=== PATIENT | female | born 1940 | race Caucasian/White ===

== ENCOUNTER 2018-06-09 10:21 | Outpatient (CLI) | payer MEDICARE ==
[2018-06-09 11:09] LABS: Blood Urea Nitrogen 12 mg/dL (7-17)
--- NOTE | 2018-06-09 14:11 | Cat Scan Report ---
FINAL REPORT EXAM: CT ANGIO ABD/FEMORAL ABD AORTA HISTORY: CHRONIC VENOUS HYPERTENSION WITH ULCER TECHNIQUE: CTA of the abdomen, pelvis and lower extremities through the toes was performed after the administration of intravenous contrast. Rotating MIPS were included. Reconstructions were included in the coronal and sagittal planes. PRIORS: None. FINDINGS: Lower thorax: There is an incompletely imaged left lower lobe nodular opacity on series 2, image 1 me asuring 5 millimeters. The visualized portions of the heart are normal. Liver: The liver is normal in attenuation. No intrahepatic biliary duct dilation. No focal hepatic le sions. Gallbladder/ biliary system: Post cholecystectomy. Mild dilation of the common bile duct is likely re lated to the postcholecystectomy state. Spleen: No splenic lesions are seen. Pancreas: No pancreatic lesions are seen. No pancreatic duct dilation. Kidneys: No renal masses, cysts or hydronephrosis. Adrenal glands: No adrenal masses. Vasculature: Calcified atherosclerotic plaque is seen throughout the abdominal aorta, branch vessels and lower extremity arteries. There is approximately 50 percent stenosis of the left distal superfici al femoral artery. Normal trifurcations are seen. There is lack of opacification of the mid to distal aspect of the right anterior tibial artery. There is reconstitution of flow distally. There is poor opacification of the left posterior tibial artery. No aneurysm is seen. The celiac axis, SMA, PATRICIA and renal arteries are patent. The common, internal and external iliac arteries are patent. Lymph nodes: No enlarged lymph nodes are seen in the abdomen or pelvis. Bowel, mesentery, peritoneum: No bowel obstruction. No free fluid or free air. The appendix was not s een. Colonic diverticulosis is seen. No diverticulitis. No bowel wall thickening. Urinary bladder: No filling defects are seen. Pelvis: Normal anatomy is noted. No masses. Abdominal wall: Small bilateral fat containing inguinal hernias are seen. Bones: Bilateral L5 pars interarticularis defects are seen. There is grade 1 anterolisthesis of L5 on S1. Multilevel degenerative changes of the lumbar spine are seen. Lower extremities: No soft tissue abnormality. Bilateral knee joint effusions are seen. Moderate to s evere osteoarthritis of the knees is noted. Estimates of vessel stenosis were made by measuring the diameter of the normal caliber vessel to the diameter of the area of stenosis. IMPRESSION: 1. Approximately 50 percent stenosis of the left distal superficial femoral artery. 2. Possible chronic occlusion of the distal aspect of the right anterior tibial artery. 3. Poor opacification of the left posterior tibial artery may represent slow flow versus chronic occl usion. 4. Small bilateral fat containing inguinal hernias. 5. Bilateral knee joint effusions with moderate to severe osteoarthritis of the knees. 6. Left lower lobe nodule. This nodule is incompletely imaged. Recommend further evaluation with ches t CT to assess for other nodules. 7. Colonic diverticulosis without diverticulitis.
== END 2018-06-09 10:22 | disposition home or self-care (01) ==
LOC: CT 10:21
PROVIDERS: ATTEND Radiology Diagnostic Radiology
DX: K40.20 Bilateral inguinal hernia, without obstruction or gangrene, not specified as recurrent (principal); K57.30 Diverticulosis of large intestine without perforation or abscess without bleeding; M17.0 Bilateral primary osteoarthritis of knee; I70.233 Atherosclerosis of native arteries of right leg with ulceration of ankle; I87.311 Chronic venous hypertension (idiopathic) with ulcer of right lower extremity; I87.2 Venous insufficiency (chronic) (peripheral); M25.462 Effusion, left knee; M25.461 Effusion, right knee; I10 Essential (primary) hypertension; E78.00 Pure hypercholesterolemia, unspecified
CPT/HCPCS: 36415; 75635; 82565; 82570; 84520; Q9967

== ENCOUNTER 2018-08-06 07:58 | Day surgery (SDC) | payer MEDICARE ==
[~2018-08-06 07:58] MED LIST: ANCEF/STERILE WATER 2 GM/20 ML 2 GM/20 ML SYRINGE IV NR; NACL 0.9% 1000 ML 1,000 ML IV SCH
[2018-08-06 09:46] LABS: Basophils % (Auto) 0.8 % (0.0-1.8); Eosinophils # (Auto) 0.1 K/mm3 (0.0-0.4); Eosinophils % (Auto) 1.4 % (0.0-4.3); Hematocrit 36.3 % (30.3-42.9); Hemoglobin 12.1 gm/dl (10.1-14.3); Lymphocytes % (Auto) 21.1 % (13.4-35.0); Mean Corpuscular HGB Conc 34 % (30-34); Mean Corpuscular Volume 93 fl (79-97); Monocytes # (Auto) 0.6 K/mm3 (0.0-0.8); Monocytes % (Auto) 12.4 % (0.0-7.3); Platelet Count 146 K/mm3 (140-440); Red Blood Count 3.89 M/mm3 (3.65-5.03); Red Cell Distribution Width 14.7 % (13.2-15.2)
[2018-08-06 10:01] LABS: INR 1.08 (0.87-1.13)
[2018-08-06 10:02] LABS: BUN/Creatinine Ratio 29; Blood Urea Nitrogen 23 mg/dL (7-17); Calcium 8.6 mg/dL (8.4-10.2); Hemolysis Index 4; Partial Thromboplastin Time 26.3 Sec. (24.2-36.6)
[2018-08-06] MEDS ORDERED: HEPARIN/NS 5000 UNIT/500ML(CATH LAB) 1,000 ML IR ONE (11:26)
[2018-08-06] MEDS ORDERED: HEPARIN 10,000 UNITS/10 ML ONE (11:26)
[2018-08-06] MEDS ORDERED: ANCEF/STERILE WATER 2 GM/20 ML 2 GM/20 ML SYRINGE IV ONE (11:42)
[2018-08-06] MEDS: SUBLIMAZE ONE ×4 (12:00→13:23)
[2018-08-06] MEDS: VERSED ONE ×6 (12:00→13:28)
[2018-08-06] MEDS: XYLOCAINE 2% INFILTRATI ONE ×2 (12:09→12:13)
[2018-08-06] MEDS ORDERED: SUBLIMAZE ONE (13:22)
--- NOTE | 2018-08-06 13:48 | Operative Report ---
Operative Report Operative Report: Operative note: Date: 08/06/2018 Preoperative diagnosis:. 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 Operation: Bilateral ultrasound-guided venous access femoral vein proximally. Bilateral venogram. Intravascular ultrasound of distal IVC, bilateral common and external iliac, common femoral veins. Bilateral common and external iliac stenting with 16 x 90 and proximal extension on the left with 18 x 90 Wallstent Surgeon: Lucia Cancino. Asst.: none Anesthesia: Local with moderate sedation EBL: Minimal Findings: Bilateral external iliac and left common iliac stenosis Indications: 8-0year-old female has been developing venous stasis ulceration. She previously underwent great saphenous vein ablation. Patient has severe dementia and cannot tolerate compression stockings. Operative details: Patient was brought to the [facility] and placed in supine position. Bilateral femoral area and upper thigh medially were prepped and draped in sterile fashion. Timeout was performed. Right femoral vein proximally was accessed under ultrasound guidance with micropuncture needle and exchanged the micropuncture sheath. That was upsized to 5 [place] access sheath. Next, left access was then performed. in the proximal femoral vein micropuncture needle and that was upsized to micropuncture sheath and then 5 [place] access sheath. Venogram was performed bilaterally noting any of the contrast on the right common iliac side. Bilateral wire access was done with Recinos on the left side and J-wire on the right side. 5 [place] sheath was upsized to 8French sheaths. intravascular ultrasound.IVUS was done noting a lot of scarring and stenosis of the right side external iliac and same stenosis of the left side. At this point stenosis points were marked on the screen as well as venous confluence. Patient was heparinized with 3000 units of heparin. Bilateral Wallstents were deployed size 16x 90. Then balloon angioplasty was 16 mm Vidal balloon was performed inside stents. On the left side the stent slide down. We extended the extent and opposed to right-sided stent into IVC, however it wasn't advancing. Using a vertebral catheter exchanged Recinos wire to glide advantage. Then I balloon angioplasty to create space and deployed successfully 18 x 90 stent expansion in the kissing fashion with the contralateral stent. Both stents were postdilated with 16 x 40 Vidal balloon. IVUS was done bilaterally noting good stent upposition. Wires were removed and sheath were pulled, manual pressure held. Pressure dressing were applied. Patient tolerated procedure well.
--- NOTE | 2018-08-06 13:55 | Short Stay Summary ---
Short Stay Documentation Date of service: 08/06/18 - History H&P: obtained from office - Allergies and Medications Current Medications: Allergies No Known Allergies Allergy (Unverified 12/28/15 22:14) Home Medications Medication Instructions Recorded Confirmed Last Taken Type Alendronate Sodium [Fosamax] 70 mg PO QWEEK 01/06/18 08/06/18 08/04/18 History 70mg Atenolol [Tenormin] 50 mg PO BID 01/06/18 08/06/18 08/06/18 History 50mg Meloxicam [Mobic] 7.5 mg PO QDAY 01/06/18 08/06/18 08/05/18 History 7.5mg Memantine HCl [Namenda] 5 mg PO BID 01/06/18 08/06/18 08/05/18 History 5mg hydroCHLOROthiazide [HCTZ] 25 mg PO QDAY 01/06/18 08/06/18 08/06/18 History 25mg Aspirin [Aspirin BABY CHEW TAB] 81 mg PO QDAY #30 tab.chew 01/09/18 08/06/18 08/05/18 Rx 81mg AtorvaSTATin [Lipitor] 40 mg PO QHS #30 tablet 01/09/18 08/06/18 08/05/18 Rx 40mg Famotidine [Pepcid] 20 mg PO DAILY #30 tablet 01/09/18 08/06/18 08/05/18 Rx 20mg Folic Acid [Folvite] 1 mg PO QDAY #30 tablet 01/09/18 08/06/18 08/05/18 Rx 1mg Lisinopril [Zestril] 40 mg PO QDAY #30 tablet 01/09/18 08/06/18 08/06/18 Rx 40mg Active Medications Cefazolin Sodium (Ancef/Sterile Water 2 Gm/20 Ml) 2 gm in 20 mls @ 80 mls/hr IV PREOP NR; Protocol Stop: 08/06/18 23:00 Sodium Chloride (Nacl 0.9% 1000 Ml) 1,000 mls @ 42 mls/hr IV DIRECT JASBIR Last Admin: 08/06/18 09:48 Dose: 42 mls/hr Documented by: - Brief post op/procedure progress note Date of procedure: 08/06/18 Pre-op diagnosis: iliac vein compression with right LE venous stasis ulcers Post-op diagnosis: same Procedure: Bilateral ultrasound-guided venous access femoral vein proximally. Bilateral venogram. Intravascular ultrasound of distal IVC, bilateral common and external iliac, common femoral veins. Bilateral common and external iliac stenting with 16 x 90 and proximal extension on the left with 18 x 90 Wallstent Anesthesia: MAC Findings: bilateral external and left common iliac compression Surgeon: CHRISTOFER DEL RIO Estimated blood loss: minimal Condition: stable - Disposition Condition at discharge: Good Disposition: DC-01 TO HOME OR SELFCARE Short Stay Discharge Plan Diet: regular Wound: keep clean and dry Follow up with: PRIMARY CARE, [Primary Care Provider] - 7 Days CHRISTOFER DEL RIO DO [Staff Physician] - 14 Days Prescriptions: Apixaban [Eliquis] 2.5 mg PO BID #60 tablet HYDROcodone/ACETAMINOPHEN [[place] 5-325 Tablet] 1 each PO Q6HR PRN #25 tablet PRN Reason: Pain , Severe (7-10)
[2018-08-06] MEDS ORDERED: NORCO 5/325 PO ONE (14:24)
[2018-08-06] MEDS ORDERED: NORCO 5/325 ONE (14:29)
[2018-08-06] MEDS ORDERED: CATAPRES ONE (14:46)
[2018-08-06] MEDS ORDERED: CATAPRES PO ONE (15:00)
[2018-08-06 15:34] VITALS: BP 211/95
== END 2018-08-06 15:53 | disposition home or self-care (01) ==
LOC: CATHLABREC 07:58
PROVIDERS: ATTEND Surgery Vascular Surgery
DX: I87.2 Venous insufficiency (chronic) (peripheral) (principal); I10 Essential (primary) hypertension; F03.90 Unspecified dementia, unspecified severity, without behavioral disturbance, psychotic disturbance, mood disturbance, and anxiety; E78.00 Pure hypercholesterolemia, unspecified; M17.2 Bilateral post-traumatic osteoarthritis of knee; Z79.01 Long term (current) use of anticoagulants; Z79.82 Long term (current) use of aspirin; Z79.899 Other long term (current) drug therapy; Z86.73 Personal history of transient ischemic attack (TIA), and cerebral infarction without residual deficits
CPT/HCPCS: 36415; 37238; 37239; 37252; 37253; 75822; 76937; 80048; 85025; 85610; 85730; 99156; 99157; C1725; C1751; C1753; C1769; C1876; C1894; J0690; J1644; J2250; J3010; J7030; Q9967

== ENCOUNTER 2019-03-02 07:54 | Outpatient (CLI) | payer MEDICARE ==
[2019-03-02] MEDS ORDERED: LIDOCAINE (4%) 40 MG/ML TOPICAL SOLN 50 ML BOTTLE TP ONE (08:30)
[2019-03-02] MEDS ORDERED: VITAMIN A & D OINT 56.7 GM TP PRN (08:30)
== END 2019-03-02 07:55 | disposition home or self-care (01) ==
LOC: WOUND 07:54
PROVIDERS: ATTEND Surgery
DX: L97.812 Non-pressure chronic ulcer of other part of right lower leg with fat layer exposed (principal); I87.8 Other specified disorders of veins; I10 Essential (primary) hypertension; Z86.73 Personal history of transient ischemic attack (TIA), and cerebral infarction without residual deficits
CPT/HCPCS: A6250

== ENCOUNTER 2019-03-16 08:53 | Outpatient (CLI) | payer MEDICARE | END 2019-03-16 08:54 | disposition home or self-care (01) | LOC: WOUND 08:53 | PROVIDERS: ATTEND Surgery | DX: L97.812 Non-pressure chronic ulcer of other part of right lower leg with fat layer exposed (principal); I87.8 Other specified disorders of veins; I10 Essential (primary) hypertension; Z86.73 Personal history of transient ischemic attack (TIA), and cerebral infarction without residual deficits ==

== ENCOUNTER 2019-03-23 09:49 | Outpatient (CLI) | payer MEDICARE | END 2019-03-23 09:50 | disposition home or self-care (01) | LOC: WOUND 09:49 | PROVIDERS: ATTEND Surgery | DX: L97.812 Non-pressure chronic ulcer of other part of right lower leg with fat layer exposed (principal); I87.8 Other specified disorders of veins; I10 Essential (primary) hypertension; Z86.73 Personal history of transient ischemic attack (TIA), and cerebral infarction without residual deficits ==

== ENCOUNTER 2019-03-30 09:44 | Outpatient (CLI) | payer MEDICARE ==
[2019-03-30] MEDS ORDERED: LIDOCAINE (4%) 40 MG/ML TOPICAL SOLN 50 ML BOTTLE TP ONE (10:30)
== END 2019-03-30 09:45 | disposition home or self-care (01) ==
LOC: WOUND 09:44
PROVIDERS: ATTEND Surgery
DX: L97.812 Non-pressure chronic ulcer of other part of right lower leg with fat layer exposed (principal); I87.8 Other specified disorders of veins; I10 Essential (primary) hypertension; Z86.73 Personal history of transient ischemic attack (TIA), and cerebral infarction without residual deficits

== ENCOUNTER 2019-04-13 09:44 | Outpatient (CLI) | payer MEDICARE ==
[2019-04-13] MEDS ORDERED: LIDOCAINE (4%) 40 MG/ML TOPICAL SOLN 50 ML BOTTLE TP ONE (10:30)
== END 2019-04-13 09:45 | disposition home or self-care (01) ==
LOC: WOUND 09:44
PROVIDERS: ATTEND Surgery
DX: L97.812 Non-pressure chronic ulcer of other part of right lower leg with fat layer exposed (principal); I87.8 Other specified disorders of veins; I10 Essential (primary) hypertension; Z86.73 Personal history of transient ischemic attack (TIA), and cerebral infarction without residual deficits

== ENCOUNTER 2019-04-19 08:45 | Outpatient (CLI) | payer MEDICARE ==
[2019-04-19] MEDS ORDERED: LIDOCAINE (4%) 40 MG/ML TOPICAL SOLN 50 ML BOTTLE TP NR (09:30)
== END 2019-04-19 08:46 | disposition home or self-care (01) ==
LOC: WOUND 08:45
PROVIDERS: ATTEND Surgery
DX: L97.812 Non-pressure chronic ulcer of other part of right lower leg with fat layer exposed (principal); I87.8 Other specified disorders of veins; I10 Essential (primary) hypertension; Z86.73 Personal history of transient ischemic attack (TIA), and cerebral infarction without residual deficits

== ENCOUNTER 2019-05-06 10:11 | Outpatient (CLI) | payer MEDICARE ==
[2019-05-06] MEDS ORDERED: LIDOCAINE (4%) 40 MG/ML TOPICAL SOLN 50 ML BOTTLE TP ONE (10:16)
== END 2019-05-06 10:12 | disposition home or self-care (01) ==
LOC: WOUND 10:11
PROVIDERS: ATTEND Surgery
DX: L97.812 Non-pressure chronic ulcer of other part of right lower leg with fat layer exposed (principal); I87.8 Other specified disorders of veins; I10 Essential (primary) hypertension; Z86.73 Personal history of transient ischemic attack (TIA), and cerebral infarction without residual deficits

== ENCOUNTER 2019-05-13 10:24 | Outpatient (CLI) | payer MEDICARE ==
[2019-05-13] MEDS ORDERED: LIDOCAINE (4%) 40 MG/ML TOPICAL SOLN 50 ML BOTTLE TP ONE (11:27)
== END 2019-05-13 10:25 | disposition home or self-care (01) ==
LOC: WOUND 10:24
PROVIDERS: ATTEND Surgery
DX: L97.812 Non-pressure chronic ulcer of other part of right lower leg with fat layer exposed (principal); I87.8 Other specified disorders of veins; I10 Essential (primary) hypertension; Z86.73 Personal history of transient ischemic attack (TIA), and cerebral infarction without residual deficits

== ENCOUNTER 2019-05-27 10:11 | Outpatient (CLI) | payer MEDICARE ==
[2019-05-27] MEDS ORDERED: LIDOCAINE (4%) 40 MG/ML TOPICAL SOLN 50 ML BOTTLE TP ONE (10:24)
== END 2019-05-27 10:12 | disposition home or self-care (01) ==
LOC: WOUND 10:11
PROVIDERS: ATTEND Surgery
DX: L97.812 Non-pressure chronic ulcer of other part of right lower leg with fat layer exposed (principal); I87.8 Other specified disorders of veins; I10 Essential (primary) hypertension; Z86.73 Personal history of transient ischemic attack (TIA), and cerebral infarction without residual deficits

== ENCOUNTER 2019-06-17 10:05 | Outpatient (CLI) | payer MEDICARE ==
[2019-06-17] MEDS ORDERED: LIDOCAINE (4%) 40 MG/ML TOPICAL SOLN 50 ML BOTTLE TP ONE (10:30)
== END 2019-06-17 10:06 | disposition home or self-care (01) ==
LOC: WOUND 10:05
PROVIDERS: ATTEND Surgery
DX: I87.311 Chronic venous hypertension (idiopathic) with ulcer of right lower extremity (principal); L97.812 Non-pressure chronic ulcer of other part of right lower leg with fat layer exposed; I87.8 Other specified disorders of veins; I10 Essential (primary) hypertension; Z86.73 Personal history of transient ischemic attack (TIA), and cerebral infarction without residual deficits
CPT/HCPCS: 99214; G0463

== ENCOUNTER 2021-10-08 13:26 | Emergency (ER) | payer MEDICARE ==
--- NOTE | 2021-10-08 14:50 | XRay Report ---
CHEST 1 VIEW INDICATION: Syncope. COMPARISON: 01/06/2018 FINDINGS: Support devices: None. Heart: Within normal limits. Lungs/Pleura: There is poor inspiration. The lungs are grossly clear with no evidence for pneumonia, pleural effusion or pneumothorax. Additional findings: None. IMPRESSION: Negative expiratory AP chest. Signer Name: Yuriy Ricks Jr, MD Signed: 10/08/2021 2:46 PM Workstation Name: [id number]
--- NOTE | 2021-10-08 15:25 | Cat Scan Report ---
CT head/brain wo con INDICATION / CLINICAL INFORMATION: 81 years Female; Syncope. TECHNIQUE: Routine CT head without contrast. All CT scans at this location are performed using CT dos e reduction for ALARA by means of automated exposure control. COMPARISON: None. 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 There may be a choroidal fissure cyst versus parahippocampal atrophy on the left, which should be of no clinical significance. Similar findings to lesser degree noted on the right. Otherwise, no acute hemorrhage, mass effect, midline shift, hydrocephalus, or acute, large territori al infarct. Mild cerebral and cerebellar atrophy. Moderate to marked, left worse than right, degree of hippocampa l atrophy suggested bilaterally. There are moderate to marked, confluent areas of decreased attenuation in the white matter of the cer ebral hemispheres. These are nonspecific findings and may be related to microangiopathy (hypertension , diabetes, atherosclerosis), given the patient's age. It might be difficult to evaluate for small ar eas of ischemia without diffusion imaging by MRI. CRANIOCERVICAL JUNCTION: No significant abnormality. ORBITS: No significant abnormality of visualized orbits. SINUSES / MASTOIDS: Mild mucosal thickening in the ethmoids. Mild to moderate mucosal thickening seen in the mastoids. No coalescence of air cells seen. ADDITIONAL FINDINGS: Bilateral temporomandibular joint disease noted. Atherosclerotic disease is seen in the anterior and posterior circulation. Poor dentition noted. IMPRESSION: 1. No focal mass, hemorrhage, hydrocephalus, or acute, large territorial infarct. Follow-up with diffusion imaging by MRI, as clinically warranted. Signer Name: Victor Manuel Ventura MD, III Signed: 10/08/2021 3:21 PM Workstation Name: [id number]
--- NOTE | 2021-10-08 16:15 | Emergency Department Report ---
ED General Adult HPI - General Chief complaint: Syncope Stated complaint: SYNCOPAL EPISODE Time Seen by Provider: 10/08/21 13:43 Source: EMS Mode of arrival: Stretcher Limitations: Language Barrier - History of Present Illness Initial comments: The patient presents to the emergency department with her daughter for chief complaint of syncopal episode. The daughter states that her mother has a history of Alzheimer's, hypertension, syncope. Daughter states that today they were at [employer] when her mother passed out. The daughter states that h er mother sees Dr. Chester and the patient has been worked up for syncopal episodes in the past. Most recent syncopal episode was a couple of months ago. She has been followed by neurology and cardiology and is currently being referred out to see a specialist for Alzheimer's. Patient denies any chest pain or shortness of breath. Manager Servicing was used to gather information. -: Sudden Severity scale (0 -10): 0 Consistency: now resolved Improves with: none Worsens with: none Associated Symptoms: denies other symptoms Treatments Prior to Arrival: none - Related Data Home Medications Medication Instructions Recorded Confirmed Last Taken Alendronate Sodium [Fosamax] 70 mg PO QWEEK 01/06/18 10/08/21 08/04/18 70 mg Meloxicam [Mobic] 7.5 mg PO QDAY 01/06/18 10/08/21 08/05/18 7.5mg Memantine HCl [Namenda] 5 mg PO BID 01/06/18 10/08/21 08/05/18 5 mg atenoloL [Tenormin] 50 mg PO BID 01/06/18 10/08/21 08/06/18 50 mg hydroCHLOROthiazide [HCTZ] 25 mg PO QDAY 01/06/18 10/08/21 08/06/18 25 mg Previous Rx's Medication Instructions Recorded Last Taken Type Aspirin [Aspirin BABY CHEW TAB] 81 mg PO QDAY #30 tab.chew 01/09/18 08/05/18 Rx 81 mg AtorvaSTATin [Lipitor] 40 mg PO QHS #30 tablet 01/09/18 08/05/18 Rx 40 mg Famotidine [Pepcid] 20 mg PO DAILY #30 tablet 01/09/18 08/05/18 Rx 20 mg Folic Acid [Folvite] 1 mg PO QDAY #30 tablet 01/09/18 08/05/18 Rx 1 mg Lisinopril [Zestril] 40 mg PO QDAY #30 tablet 01/09/18 08/06/18 Rx 40 mg Apixaban [Eliquis] 2.5 mg PO BID #60 tablet 08/06/18 Unknown Rx HYDROcodone/ACETAMINOPHEN [[place] 1 each PO Q6HR PRN #25 tablet 08/06/18 Unknown Rx 5-325 Tablet] Allergies Allergy/AdvReac Type Severity Reaction Status Date / Time No Known Allergies Allergy Verified 10/08/21 13:28 ED Review of Systems ROS: Stated complaint: SYNCOPAL EPISODE Other details as noted in HPI Comment: All other systems reviewed and negative Constitutional: denies: chills, fever Eyes: denies: eye pain, eye discharge, vision change ENT: denies: ear pain, throat pain Respiratory: denies: cough, shortness of breath, wheezing Cardiovascular: denies: chest pain, palpitations Endocrine: no symptoms reported Gastrointestinal: denies: abdominal pain, nausea, diarrhea Genitourinary: denies: urgency, dysuria, discharge Musculoskeletal: denies: back pain, joint swelling, arthralgia Skin: denies: rash, lesions Neurological: denies: headache, weakness, paresthesias Psychiatric: denies: anxiety, depression Hematological/Lymphatic: denies: easy bleeding, easy bruising ED Past Medical Hx - Past Medical History Hx Hypertension: Yes Hx Arthritis: Yes (bilateral knee arthritis with bilateral weakness le) Hx Psychiatric Treatment: Yes (dementia) Hx Tuberculosis: Yes Additional medical history: osteoporosis, - Social History Smoking Status: Never Smoker Substance Use Type: None - Medications Home Medications: Home Medications Medication Instructions Recorded Confirmed Last Taken Type Alendronate Sodium [Fosamax] 70 mg PO QWEEK 01/06/18 10/08/21 08/04/18 History 70 mg Meloxicam [Mobic] 7.5 mg PO QDAY 01/06/18 10/08/21 08/05/18 History 7.5mg Memantine HCl [Namenda] 5 mg PO BID 01/06/18 10/08/21 08/05/18 History 5 mg atenoloL [Tenormin] 50 mg PO BID 01/06/18 10/08/21 08/06/18 History 50 mg hydroCHLOROthiazide [HCTZ] 25 mg PO QDAY 01/06/18 10/08/21 08/06/18 History 25 mg Aspirin [Aspirin BABY CHEW TAB] 81 mg PO QDAY #30 tab.chew 01/09/18 10/08/21 08/05/18 Rx 81 mg AtorvaSTATin [Lipitor] 40 mg PO QHS #30 tablet 01/09/18 10/08/21 08/05/18 Rx 40 mg Famotidine [Pepcid] 20 mg PO DAILY #30 tablet 01/09/18 10/08/21 08/05/18 Rx 20 mg Folic Acid [Folvite] 1 mg PO QDAY #30 tablet 01/09/18 10/08/21 08/05/18 Rx 1 mg Lisinopril [Zestril] 40 mg PO QDAY #30 tablet 01/09/18 10/08/21 08/06/18 Rx 40 mg Apixaban [Eliquis] 2.5 mg PO BID #60 tablet 08/06/18 10/08/21 Unknown Rx HYDROcodone/ACETAMINOPHEN [[place] 1 each PO Q6HR PRN #25 tablet 08/06/18 10/08/21 Unknown Rx 5-325 Tablet] ED Physical Exam - General Limitations: Language Barrier General appearance: alert, in no apparent distress - Head Head exam: Present: atraumatic, normocephalic - Eye Eye exam: Present: normal appearance - ENT ENT exam: Present: mucous membranes moist - Neck Neck exam: Present: normal inspection - Respiratory Respiratory exam: Present: normal lung sounds bilaterally. Absent: respiratory distress - Cardiovascular Cardiovascular Exam: Present: regular rate, normal rhythm. Absent: systolic murmur, diastolic murmur, rubs, gallop - GI/Abdominal GI/Abdominal exam: Present: soft, normal bowel sounds. Absent: distended, tenderness - Extremities Exam Extremities exam: Present: normal inspection - Back Exam Back exam: Present: normal inspection - Neurological Exam Neurological exam: Present: alert, oriented X3, CN II-XII intact. Absent: motor sensory deficit - Psychiatric Psychiatric exam: Present: normal affect, normal mood - Skin Skin exam: Present: warm, dry, intact, normal color. Absent: rash ED Course Vital Signs 10/08/21 10/08/21 13:49 13:51 Temperature 97.8 F 97.8 F Pulse Rate 59 L 59 L Respiratory 16 16 Rate Blood Pressure 143/64 Blood Pressure 143/64 [Left] O2 Sat by Pulse 100 100 Oximetry ED Medical Decision Making - Lab Data Result diagrams: 10/08/21 16:19 10/08/21 16:19 Lab Results 10/08/21 10/08/21 10/08/21 Range/Units 16:19 16:19 16:19 WBC 6.9 (4.5-11.0) K/mm3 RBC 4.29 (3.65-5.03) M/mm3 Hgb 13.2 (10.1-14.3) gm/dl Hct 40.0 (30.3-42.9) % MCV 93 (79-97) fl MCH 31 (28-32) pg MCHC 33 (30-34) % RDW 14.5 (13.2-15.2) % Plt Count 172 (140-440) K/mm3 Lymph % (Auto) 13.5 (13.4-35.0) % [place] % (Auto) 7.5 H (0.0-7.3) % Eos % (Auto) 0.7 (0.0-4.3) % Baso % (Auto) 0.6 (0.0-1.8) % Lymph # (Auto) 0.9 L (1.2-5.4) K/mm3 [place] # (Auto) 0.5 (0.0-0.8) K/mm3 Eos # (Auto) 0.1 (0.0-0.4) K/mm3 Baso # (Auto) 0.0 (0.0-0.1) K/mm3 Seg Neutrophils % 77.7 H (40.0-70.0) % Seg Neutrophils # 5.3 (1.8-7.7) K/mm3 PT 15.3 H (12.2-14.9) Sec. INR 1.09 (0.87-1.13) Sodium 140 (137-145) mmol/L Potassium 4.0 (3.6-5.0) mmol/L Chloride 100.3 (98-107) mmol/L Carbon Dioxide 29 (22-30) mmol/L Anion Gap 15 mmol/L BUN 14 (7-17) mg/dL Creatinine 0.8 (0.6-1.2) mg/dL Estimated GFR > 60 ml/min BUN/Creatinine Ratio 18 % Glucose 111 H (65-100) mg/dL Calcium 9.0 (8.4-10.2) mg/dL Magnesium 2.30 (1.7-2.3) mg/dL Total Bilirubin 0.30 (0.1-1.2) mg/dL AST 17 (5-40) units/L ALT 13 (7-56) units/L Alkaline Phosphatase 83 (35-129) units/L Total Creatine Kinase 89 (30-135) units/L CK-MB (CK-2) 2.4 (0.0-4.0) ng/mL CK-MB (CK-2) Rel Index 2.6 (0-4) Troponin T < 0.010 (0.00-0.029) ng/mL Total Protein 7.0 (6.3-8.2) g/dL Albumin 4.1 (3.9-5) g/dL Albumin/Globulin Ratio 1.4 % - EKG Data -: EKG Interpreted by Fl EKG shows normal: sinus rhythm Rate: normal - Radiology Data Radiology results: report reviewed - Medical Decision Making Manager Servicing used to discuss findings Admission offered but politely declined Critical care attestation.: If time is entered above; I have spent that time in minutes in the direct care of this critically ill patient, excluding procedure time. ED Disposition Clinical Impression: Vasovagal near-syncope Disposition: 01 HOME / SELF CARE / HOMELESS Is pt being admited?: No Does the pt Need Aspirin: No Condition: Stable Instructions: Syncope Additional Instructions: return if worse Referrals: SAMANTHA MORAES MD [Staff Physician] - 3-5 Days PRIMARY CAREMD [Primary Care Provider] - 3-5 Days Time of Disposition: 18:27
[2021-10-08 16:59] LABS: Basophils % (Auto) 0.6 % (0.0-1.8); Eosinophils # (Auto) 0.1 K/mm3 (0.0-0.4); Eosinophils % (Auto) 0.7 % (0.0-4.3); Hemoglobin 13.2 gm/dl (10.1-14.3); Lymphocytes # (Auto) 0.9 K/mm3 (1.2-5.4); Lymphocytes % (Auto) 13.5 % (13.4-35.0); Mean Corpuscular HGB Conc 33 % (30-34); Mean Corpuscular Volume 93 fl (79-97); Monocytes # (Auto) 0.5 K/mm3 (0.0-0.8); Monocytes % (Auto) 7.5 % (0.0-7.3); Platelet Count 172 K/mm3 (140-440); Red Blood Count 4.29 M/mm3 (3.65-5.03); Red Cell Distribution Width 14.5 % (13.2-15.2)
[2021-10-08] MEDS ORDERED: amLODIPine 5 MG TAB PO ONE (17:00)
[2021-10-08 17:02] LABS: Alanine Aminotransferase 13 units/L (7-56); Albumin 4.1 g/dL (3.9-5); BUN/Creatinine Ratio 18; Blood Urea Nitrogen 14 mg/dL (7-17); Creatine Kinase MB 2.4 ng/mL (0.0-4.0); Hemolysis Index 7
[2021-10-08 17:17] LABS: INR 1.09 (0.87-1.13)
[2021-10-08 19:23] VITALS: BP 135/72
== END 2021-10-08 19:35 | disposition home or self-care (01) ==
LOC: ED 13:26
DX: R55 Syncope and collapse (principal); I10 Essential (primary) hypertension; M17.0 Bilateral primary osteoarthritis of knee; F03.90 Unspecified dementia, unspecified severity, without behavioral disturbance, psychotic disturbance, mood disturbance, and anxiety; A15.9 Respiratory tuberculosis unspecified; M81.0 Age-related osteoporosis without current pathological fracture
CPT/HCPCS: 36415; 70450; 71045; 80053; 82550; 82553; 83735; 84484; 85025; 85610; 93005; 99285